=== PATIENT | female | born 1945 | race Caucasian/White ===

== ENCOUNTER 2021-02-17 09:26 | Emergency (ER) | payer MEDICARE, OTHER, SELFPAY ==
[2021-02-17 09:30] VITALS: BP 111/60; PULSE 76; RESP 14; TEMP 36.9; O2SAT 95; BMI 29.0
--- NOTE | 2021-02-17 09:59 | ED_ITS ---
HPI - Female Genitourinary General Chief complaint: Urogenital-Female Stated complaint: possible bladder infection Time Seen by Provider: 02/17/21 09:47 Source: patient Mode of arrival: Ambulatory Limitations: no limitations History of Present Illness HPI Narrative: patient is a 76-year-old female with history of hypertension, breast cancer, hyperparathyroid, diabetes presenting with painful frequent urination ongoing for last 2 days. She does have a history of prior UTIs. She said she had 1 last fall she found out she was allergic to Bactrim caused a rash she was tried on other antibiotics she is not sure which 1 finally works for her. She is visiting from [place] and supposed to be returning in 2 days. she denies any fevers chills nausea vomiting or back pain. MD Complaint: UTI Related Data Previous Rx's Medication Instructions Recorded cephalexin 500 mg PO BID 5 Days #10 cap 02/17/21 phenazopyridine [Pyridium] 200 mg PO TID PRN #6 tab 02/17/21 Allergies Allergy/AdvReac Type Severity Reaction Status Date / Time Sulfa (Sulfonamide Allergy Verified 02/17/21 09:58 Antibiotics) Review of Systems Review of Systems Narrative: GENERAL: Denies chills,fever HEENT: Denies throat pain RESPIRATORY: Denies dyspnea, cough, wheezing CARDIOVASCULAR: Denies chest pain, palpitations GASTROINTESTINAL: Denies nausea, vomiting MUSCULOSKELETAL: Denies extremity pain, injury SKIN: No rash, no laceration, no pruritus NEUROLOGIC: Denies weakness, dizziness, headache, numbness 8 point review of systems is negative except for those stated above and HPI Exam Initial Vital Signs Initial Vital Signs: Vital Signs Temperature 98.4 F 02/17/21 09:30 Pulse Rate 76 02/17/21 09:30 Respiratory Rate 14 02/17/21 09:30 Blood Pressure 111/60 02/17/21 09:30 Pulse Oximetry 95 02/17/21 09:30 GENERAL: Well-appearing, well-nourished and in no acute distress. CARDIOVASCULAR: peripheral pulses in tact, cap refill <2 sec RESPIRATORY: No respiratory distress, speaks in full sentences without difficulty, clear bilaterally ABDOMEN: Soft, nontender, no guarding or rebound : Mild suprapubic pain no flank tenderness EXTREMITIES: Normal range of motion, no clubbing or edema. Neurovascularly intact NEUROLOGICAL: Cranial nerves II through XII grossly intact. Normal gait and speech. SKIN: Warm, dry, no petechiae, no rashes or lesions. Course Orders Ordered: ED Orders 02/17/21 09:31 Urinalysis and Microscopic Stat Urine Culture Stat Vital Signs Vital signs: Vital Signs - 8 hr 02/17/21 09:30 Temperature 98.4 F Pulse Rate 76 Respiratory Rate 14 Blood Pressure 111/60 Pulse Oximetry 95 MDM - Female Genitourinary Lab Data Attestation: I reviewed the patient's lab results. Labs: Lab Results 02/17/21 Range/Units 09:31 Urine Color Yellow Urine Appearance Cloudy Urine pH 6.5 (4.5-8.0) Ur Specific [place] 1.025 (1.000-1.035) Urine Protein 3+ H (Negative) Urine Glucose (UA) Negative (Negative) g/dL Urine Ketones Negative (NEGATIVE) Urine Occult Blood 3+ H (Negative) Urine Nitrate Positive H (Negative) Urine Bilirubin Negative (NEGATIVE) Urine Urobilinogen Normal (0.2) E.U./dL Ur Leukocyte Esterase 2+ H (NEGATIVE) Urine RBC 30-100/hpf H (0-5/HPF) Urine WBC >100/hpf H (0-5/HPF) Ur Squamous Epith Cells 0-1 /hpf (0-5/HPF) Urine Bacteria Moderate (10-30) H (None) Ur Culture Indicated? Specimen cultured Micro UA Comment [facility] Narrative Medical decision making narrative: The patient is positive for nitrates with obvious UTI does not appear septic his. She is returning home in 2 days nick mmend she call her PCP today to schedule follow-up appointment. She is started on Keflex. Discharge Plan Departure Patient Disposition: Home Clinical Impression: Urinary tract infection Instructions: DI for Urinary Tract Infection (UTI) Activity Restrictions/Additional Instructions: *You have been diagnosed with UTI *What to do: At this time appears and do have a bladder infection. Please follow-up with your primary care provider and or ar. *Continue to take medications as directed Keflex 500 mg twice a day for 3 days however if you are not feeling better at 3 days, then continue for 2 more days for total of 5 days. Pyridium 200 mg three times a day for 3 days for burning *Follow up with your primary care provider in 2-3 days *Return to ER if you should have increasing pain, fever, confusion or any new, worsening or concerning symptoms Prescriptions: New cephalexin 500 mg capsule 500 mg PO BID 5 Days Qty: 10 RF: 0 phenazopyridine [Pyridium] 200 mg tablet 200 mg PO TID PRN (Reason: pain) Qty: 6 RF: 0
--- NOTE | 2021-02-17 10:01 | PC.NURSE ---
pt taking AZO
[2021-02-17 10:07] LABS: Appearance Urine UA CLOUDY; Color Urine UA YELLOW
[2021-02-17 10:08] LABS: Bilirubin Urine UA Negative (NEGATIVE); Glucose Urine UA NEGATIVE (Negative); Ketones Urine UA NEGATIVE (NEGATIVE); Nitrite Urine UA POSITIVE (Negative); Occult Blood Urine UA 3+ (Negative); Protein Urine UA 3+ (Negative); Specific Gravity Urine UA 1.025 (1.000-1.035); Urobilinogen Urine UA Normal E.U./dL (0.2); pH Urine UA 6.5 (4.5-8.0)
[2021-02-17 10:09] LABS: Bacteria Urine Moderate (10-30); Culture Indicated Urine Specimen Cultured; Leukocyte Esterase Urine UA 2+ (NEGATIVE); RBC Urine 30-100/HPF (0-5/HPF); Squamous Epithelial Cell Urine 0-1 /HPF (0-5/HPF); WBC Urine >100/HPF (0-5/HPF)
== END 2021-02-17 10:26 | disposition home or self-care (01) ==
PROVIDERS: Emergency Provider Emergency Medicine
DX: N39.0 Urinary tract infection, site not specified (principal)
CPT/HCPCS: 81001; 87077; 87086; 87186; 99281; 99282